=== PATIENT | female | born 2000 | race Caucasian/White ===

== ENCOUNTER 2023-03-02 18:51 | Emergency (ER) | payer OTHER, MEDICAID, SELFPAY ==
[2023-03-02 19:23] VITALS: BP 107/64; PULSE 103; RESP 18; TEMP 37; O2SAT 100; BMI 25.5
[2023-03-02] MEDS: ONDANSETRON 4 MG/2 ML INJ IV (19:43)
[2023-03-02 19:54] LABS: Add Manual Diff / Slide Review NO; Basophils Absolute Auto 0 /uL (0-100); Basophils Percent Auto 0.2 % (0-2); Eosinophils Absolute Auto 0 /uL (0-450); Eosinophils Percent Auto 0.3 % (2-4); Hematocrit 43.1 % (36-46); Hemoglobin 14.7 g/dL (12.0-16.0); Lymphocytes Absolute Auto 1200 /uL (1100-4500); Lymphocytes Percent Auto 15.9 % (25-40); Mean Corpuscular Hemoglobin 27.6 PG (26-34); Monocytes Absolute Auto 700 /uL (0-900); Monocytes Percent Auto 9.3 % (3-14); Neutrophils Absolute Auto 5800 /uL (1500-7000); Neutrophils Percent Auto 74.3 % (50-75); Platelet Count 350 X10^3/uL (150-400); Red Blood Cell Count 5.32 X10^6/uL (4.0-5.2); Red Cell Distribution Width 14.2 % (11.6-14.8); White Blood Cell Count 7.8 X10^3/uL (4.5-11.0)
[2023-03-02 20:03] LABS: Alanine Aminotransferase 24 IU/L (<35); Albumin 4.1 g/dL (3.5-5.0); Albumin Globulin Ratio 1.1 (1.0-2.8); Alkaline Phosphatase 96 U/L (38-126); Aspartate Aminotransferase 25 IU/L (14-36); BUN Creatinine Ratio 9.9 (6-22); Bilirubin Total 0.5 mg/dL (0.2-1.3); Blood Urea Nitrogen 7 mg/dL (7-17); Calcium 8.8 mg/dL (8.4-10.2); Carbon Dioxide 26 mmol/L (22-32); Chloride 101 mmol/L (98-107); Estimated Glomerular Filt Rate > 60 mL/min (>60); Globulin 3.7 g/dL (1.7-4.1); Glucose 98 mg/dL (70-100); HEMOLYSIS < 15 (0-50); Lipase 40 U/L (23-300); Potassium 3.8 mmol/L (3.4-5.1); Sodium 134 mmol/L (137-145); Total Protein 7.8 g/dL (6.3-8.2)
[2023-03-02 20:03] LABS: Bacteria Urine Occasional (0-1)
[2023-03-02 20:04] LABS: Culture Indicated Urine Specimen Cultured; RBC Urine 1-5/HPF (0-5/HPF); Squamous Epithelial Cell Urine 0-1 /HPF (0-5/HPF); WBC Urine 10-30/HPF (0-5/HPF)
--- NOTE | 2023-03-02 21:54 | ED_ITS ---
HPI - General Adult General Chief complaint: Abdominal Pain Stated complaint: abd pain/vomiting x1 day Time Seen by Provider: 03/02/23 21:40 Source: patient Mode of arrival: Ambulatory History of Present Illness HPI narrative: Patient is a 22-year-old female who is here for evaluation of abdominal pain and vomiting for the past day. She is had discomfort like this in the past. It seems to occur approximately once a month but not specifically associated with menstrual cycles. She did get end of last year. She is been on control since that time. Today she is having some urinary frequency and urgency. No fevers. No back pain. Change in bowel habits. No vaginal bleeding. Has not tried anything for symptoms prior to Related Data Previous Rx's Medication Instructions Recorded nitrofurantoin 100 mg PO Q12H 5 days #10 caps 03/02/23 monohydrate/macrocrystals 100 mg capsule (Macrobid) Allergies Allergy/AdvReac Type Severity Reaction Status Date / Time naproxen Allergy Intermediate ITCHING Verified 03/02/23 19:44 Review of Systems Constitutional Constitutional: Reports system reviewed and no additional complaints, except as documented Cardiovascular Cardiovascular: Reports system reviewed and no additional complaints, except as documented Respiratory Respiratory: Reports system reviewed and no additional complaints, except as documented Gastrointestinal Gastrointestinal: Reports system reviewed and no additional complaints, except as documented Genitourinary Genitourinary: Reports system reviewed and no additional complaints, except as documented Integumentary/Breasts Skin/Breast: Reports system reviewed and no additional complaints, except as documented Neurologic Neurologic: Reports system reviewed and no additional complaints, except as documented Patient History Social History Smoking Status: Never smoker Smoking Status: Never smoker alcohol intake frequency: holidays/special occasions only Substance Use Type: marijuana Exam Initial Vital Signs Initial Vital Signs: Vital Signs Temperature 98.6 F 03/02/23 19:23 Pulse Rate 103 H 03/02/23 19:23 Respiratory Rate 18 03/02/23 19:23 Blood Pressure 107/64 03/02/23 19:23 Pulse Oximetry 100 03/02/23 19:23 Oxygen Delivery Method Room Air 03/02/23 19:23 Const General: cooperative, comfortable and No ill appearing HENMT Head: normal to inspection and normocephalic Resp Effort & Inspection: normal respiratory effort Cardio Rate: regular rate GI Inspection: normal to inspection and non-distended Palpation: soft, No firm and tender Back/Spine/Pelvis Back: No CVA tenderness Skin General: no rashes or lesions noted Course Orders Ordered: ED Orders 03/02/23 19:35 Urine Culture Stat Urine Microscopic Stat 03/02/23 19:40 Complete Blood Count AUTO DIFF Stat Comprehensive Metabolic Panel Stat Lipase Stat Discontinued Medications Nitrofurantoin Macrocrystals (Nitrofurantoin Er 100 Mg Capsule) 100 mg PO NOW ONE Stop: 03/02/23 21:56 Last Admin: 03/02/23 22:01 Dose: 100 mg Documented By: DIANA Ondansetron HCl (Ondansetron 4 Mg Odt) 4 mg PO NOW PRN PRN Reason: Nausea And Vomiting Ondansetron HCl (Ondansetron 4 Mg/2 Ml Inj) 4 mg IV NOW PRN PRN Reason: Nausea And Vomiting Last Admin: 03/02/23 19:43 Dose: 4 mg Documented By: DIANA Vital Signs Vital signs: Vital Signs - 8 hr 03/02/23 22:02 Pulse Rate 76 Respiratory Rate 18 Blood Pressure 108/60 Pulse Oximetry 100 Oxygen Delivery Method Room Air Medical Decision Making Lab Data Lab results reviewed: Yes I reviewed the patient's lab results. 03/02/23 19:40 03/02/23 19:40 Labs: Lab Results 03/02/23 03/02/23 03/02/23 Range/Units 19:35 19:40 19:40 WBC 7.8 (4.5-11.0) X10^3/uL RBC 5.32 H (4.0-5.2) X10^6/uL Hgb 14.7 (12.0-16.0) g/dL Hct 43.1 (36-46) % MCV 81.0 (80-100) fL MCH 27.6 (26-34) PG MCHC 34.0 (30-36) % RDW 14.2 (11.6-14.8) % Plt Count 350 (150-400) X10^3/uL Neut % (Auto) 74.3 (50-75) % Lymph % (Auto) 15.9 L (25-40) % [place] % (Auto) 9.3 (3-14) % Eos % (Auto) 0.3 L (2-4) % Baso % (Auto) 0.2 (0-2) % Neut # (Auto) 5800 (4280-6456) /uL Lymph # (Auto) 1200 (5315-1728) /uL [place] # (Auto) 700 (0-900) /uL Eos # (Auto) 0 (0-450) /uL Baso # (Auto) 0 (0-100) /uL Sodium 134 L (137-145) mmol/L Potassium 3.8 (3.4-5.1) mmol/L Chloride 101 (98-107) mmol/L Carbon Dioxide 26 (22-32) mmol/L BUN 7 (7-17) mg/dL Creatinine 0.71 (0.52-1.04) mg/dL Estimated GFR > 60 (>60) mL/min BUN/Creatinine Ratio 9.9 (6-22) Glucose 98 (70-100) mg/dL Calcium 8.8 (8.4-10.2) mg/dL Total Bilirubin 0.5 (0.2-1.3) mg/dL AST 25 (14-36) IU/L ALT 24 (<35) IU/L Alkaline Phosphatase 96 (38-126) U/L Total Protein 7.8 (6.3-8.2) g/dL Albumin 4.1 (3.5-5.0) g/dL Globulin 3.7 (1.7-4.1) g/dL Albumin/Globulin Ratio 1.1 (1.0-2.8) Lipase 40 (23-300) U/L Urine RBC 1-5/hpf (0-5/HPF) Urine WBC 10-30/hpf H (0-5/HPF) Ur Squamous Epith Cells 0-1 /hpf (0-5/HPF) Urine Bacteria Occasional (0-1) (None) Ur Culture Indicated? Specimen cultured Point of Care Testing Test Results Negative Urine Dip Bedside Urine Glucose Negative Bedside Urine Bilirubin - Negative Bedside Urine Ketone - Negative Urine Specific [place] 1.005 Bedside Urine Occult Blood - Negative Bedside Urine pH 7 Bedside Urine Protein - Negative Bedside Urine Urobilinogen - Negative Bedside Urine Nitrite - Negative Bedside Urine Leukocytes +++ 500 Esterase Point of care testing: Point of Care Testing Test Results Negative Urine Dip Bedside Urine Glucose Negative Bedside Urine Bilirubin - Negative Bedside Urine Ketone - Negative Urine Specific [place] 1.005 Bedside Urine Occult Blood - Negative Bedside Urine pH 7 Bedside Urine Protein - Negative Bedside Urine Urobilinogen - Negative Bedside Urine Nitrite - Negative Bedside Urine Leukocytes +++ 500 Esterase MDM Narrative Medical decision making narrative: Based her presentation today low suspicion for an acute intra-abdominal surgical pathology such as appendicitis, obstruction acute cholecystitis. Low suspicion for pancreatitis. Patient does have bacteria in her urine and she is having some symptoms that could be associated with the urinary tract infection. I have low suspicion for pyelonephritis. We will treat her with the antibiotics however advised if her symptoms do not improve that she should contact her primary doctor for referral to see either gastroenterology or potentially farm equipment technician. She expressed understanding Discharge Plan Departure Patient Disposition: Home Clinical Impression: Abdominal cramping, Urinary tract infection Instructions: DI for Urinary Tract Infection (UTI) Activity Restrictions/Additional Instructions: I do recommend that you take all the antibiotics as directed. Also recommend you contact your primary doctor for a follow-up especially if your symptoms do not improve with the antibiotics. Return to the emergency department for new or worsening symptoms Prescriptions: New nitrofurantoin monohyd/m-cryst [Macrobid] 100 mg capsule 100 mg PO Q12H 5 Days Qty: 10 0RF Rx Instructions: must administer with a meal/food Referrals: [facility],Doctor[facility] [Primary Care Provider] - Stand Alone Forms: Patient Portal/API
[2023-03-02] MEDS: NITROFURANTOIN ER 100 MG CAPSULE PO (22:01)
[2023-03-02 22:02] VITALS: BP 108/60; PULSE 76; RESP 18; O2SAT 100
== END 2023-03-02 22:02 | disposition home or self-care (01) ==
PROVIDERS: Emergency Provider Emergency Medicine
DX: R10.9 Unspecified abdominal pain (principal); N39.0 Urinary tract infection, site not specified; R11.10 Vomiting, unspecified
CPT/HCPCS: 36415; 80053; 81003; 81015; 81025; 83690; 85025; 87086; 96374; 99284; J2405

== ENCOUNTER → 2023-04-12 17:39 | Outpatient (CLI) | payer OTHER, MEDICAID, SELFPAY ==
--- NOTE | 2023-04-12 | DI.US.S_ITS ---
PROCEDURE: US OB <= 14 WEEKS FETUS INDICATIONS: POSSIBLE BLIGHTED OVUM OUTSIDE/PRIOR DATING DATA: Last menstrual period (LMP): 02/08/2023. LMP-based estimated date of delivery (KARLY): 11/15/2023. First dating scan (date and location): 04/12/2023. Estimated date of delivery (KARLY) from first dating scan: 12/06/2023. TECHNIQUE: Real-time scanning was performed of the fetus and maternal pelvic organs, with image documentation. Endovaginal scanning was also performed to better visualize the fetus and maternal ovaries. COMPARISON: None. FINDINGS: Embryo: [place]-rump length of 0.36 centimeters corresponding to gestational age of 6 weeks 0 days Heart rate: 122 beats per minute Maternal organs: Ovaries are unremarkable. IMPRESSION: Single living intrauterine with gestational age of 6 weeks 0 days by crown-rump length corresponding to an KARLY of 12/06/2023, discordant with clinical dates. We strive to produce accurate, complete, and clear reports of imaging services. To assist us in improving patient care, this report was composed using standard report templates and voice recognition software. Therefore, it may contain abnormal punctuation, insertions and/or omissions. Occasional wrong-word or sound-alike substitutions may occur. Though we review the report and make efforts to correct it, we do recommend that the report be read carefully in proper context to recognize any text inaccuracies. Dictated by: Sarwat Lucero M.D. on 04/13/2023 at 8:41 Approved by: Sarwat Lucero M.D. on 04/13/2023 at 8:45
== END ==
PROVIDERS: Referring Provider Nurse Practitioner Obstetrics & Gynecology; Visit Provider Nurse Practitioner Obstetrics & Gynecology
DX: Z3A.01 Less than 8 weeks gestation of pregnancy; Z34.91 Encounter for supervision of normal pregnancy, unspecified, first trimester
CPT/HCPCS: 76801; 76817

== ENCOUNTER → 2023-04-16 13:10 | Outpatient (CLI) | payer OTHER, MEDICAID, SELFPAY ==
[2023-04-16 14:36] LABS: Pregnancy Test Serum,Qual Positive (Negative)
== END ==
PROVIDERS: Referring Provider Nurse Practitioner Obstetrics & Gynecology; Visit Provider Nurse Practitioner Obstetrics & Gynecology
DX: O20.0 Threatened abortion (principal); Z3A.00 Weeks of gestation of pregnancy not specified
CPT/HCPCS: 36415; 84703